=== PATIENT | female | born 1970 | race Two or more races ===

== ENCOUNTER 2018-02-17 03:25 | Emergency (ER) | payer OTHER ==
[~2018-02-17] VITALS: Ht 154.9 cm; Wt 77.6 kg
[2018-02-17 03:52] VITALS: BP 136/50
== END 2018-02-17 05:51 | disposition home or self-care (01) ==
LOC: ER 03:27
DX: S93.402A Sprain of unspecified ligament of left ankle, initial encounter (principal); Z88.0 Allergy status to penicillin; X50.0XXA Overexertion from strenuous movement or load, initial encounter; Y93.89 Activity, other specified; Y99.8 Other external cause status; Y92.89 Other specified places as the place of occurrence of the external cause
CPT/HCPCS: 29515; 73130; 73610